=== PATIENT | female | born 1980 | race Caucasian/White ===

== ENCOUNTER → 2016-09-10 | Outpatient (CLI) | payer OTHER ==
[2016-09-10 11:38] LABS: BASO % 0.4 % (0.0-1.0); EOS # 0.1 K/mm3 (0.0-0.50); EOS % 1.6 % (0.0-3.0); LARGE UNSTAINED CELL # 0.1 K/mm3 (0.0-0.4); LARGE UNSTAINED CELL % 1.8 % (0.0-4.0); LYMPH # 1.7 K/mm3 (1.5-4.5); LYMPH % 22.3 % (24.0-44.0); MEAN CORPUSCULAR HEMOGLOBIN 30.2 pg (27.0-33.0); MEAN CORPUSCULAR HGB CONC 32.8 g/dl (32.0-36.5); MEAN CORPUSCULAR VOLUME 92.3 fl (80.0-96.0); MONO # 0.4 K/mm3 (0.0-0.8); MONO % 5.1 % (0.0-5.0); NEUTROPHILS # 5.3 K/mm3 (1.8-7.7); PLATELET COUNT, AUTOMATED 303 k/mm3 (150-450); RED CELL DISTRIBUTION WIDTH 12.4 % (11.5-14.5); WHITE BLOOD COUNT 7.6 K/mm3 (4.0-10.0)
[2016-09-10 11:56] LABS: ALBUMIN 4.1 GM/DL (3.2-5.2); ALBUMIN/GLOBULIN RATIO 1.11 (1.00-1.93); ALKALINE PHOSPHATASE 39 U/L (45-117); ALT/SGPT 27 U/L (12-78); ANION GAP 10 MEQ/L (8-16); AST/SGOT 17 U/L (15-37); BILIRUBIN,TOTAL 0.6 MG/DL (0.2-1.0); BLOOD UREA NITROGEN 14 MG/DL (7-18); CALCIUM LEVEL 8.9 MG/DL (8.5-10.1); CARBON DIOXIDE LEVEL 27 MEQ/L (21-32); CHLORIDE LEVEL 104 MEQ/L (98-107); CHOLESTEROL LEVEL 201 MG/DL (<200); CREATININE FOR GFR 0.88 MG/DL (0.55-1.02); GLOMERULAR FILTRATION RATE > 60.0 (>60); GLUCOSE, FASTING 77 MG/DL (70-105); POTASSIUM SERUM 4.4 MEQ/L (3.5-5.1); SODIUM LEVEL 141 MEQ/L (136-145); TOTAL PROTEIN 7.8 GM/DL (6.4-8.2); TRIGLYCERIDES LEVEL 71 MG/DL (<150)
== END | disposition home or self-care (01) ==
LOC: M LRY 08:27
PROVIDERS: ATTEND Family Medicine
DX: Z13.220 Encounter for screening for lipoid disorders (principal); Z86.73 Personal history of transient ischemic attack (TIA), and cerebral infarction without residual deficits

== ENCOUNTER → 2016-12-30 | Outpatient (REF) | payer OTHER | LOC: M LAB REF 17:12 | PROVIDERS: ATTEND Advanced Practice Midwife | DX: Z12.4 Encounter for screening for malignant neoplasm of cervix (principal) ==

== ENCOUNTER → 2016-12-31 | Outpatient (CLI) | payer OTHER ==
--- NOTE | 2017-01-01 06:15 | REP ---
Clinical: Abnormal uterine bleeding . Technique: Transabdominal pelvic ultrasound followed by transvaginal examination for better evaluation of the endometrium and adnexa with color Doppler evaluation of the ovaries. Findings: Bladder is unremarkable and measures 9.1 x 8.5 x 5.0 cm . Normal anteverted uterus measures 8.6 x 4.2 x 6.1 cm . The endometrial complex measures 11.3 mm thickness. IUD identified in satisfactory position. Few Nabothian cysts identified. Bilateral ovaries are normal in appearance and vascularity without evidence for torsion. Right ovary measures 4.5 x 2.9 x 3.1 cm with 2.5 cm likely physiologic cyst ; R I = 0.38 . Left ovary measures 4.0 x 2.2 x 3.2 cm ; R I = 0.74 . No pelvic fluid or adnexal mass lesion. Impression: 1. Anteverted uterus with IUD in satisfactory position. Few scattered Nabothian cysts. 2. 2.5 cm cyst in the right ovary likely physiologic. 1 cm echogenic focus in the right ovary nonspecific. Consider reevaluation in 4-6 weeks to evaluate for resolution. Signed by Cristhian Melvin MD 01/01/2017 06:06 A
== END ==
LOC: M LRY 08:20
PROVIDERS: ATTEND Advanced Practice Midwife
DX: N92.3 Ovulation bleeding (principal); N85.4 Malposition of uterus; N83.201 Unspecified ovarian cyst, right side; Z97.5 Presence of (intrauterine) contraceptive device

== ENCOUNTER → 2017-01-03 | Outpatient (CLI) | payer OTHER ==
--- NOTE | 2017-01-06 09:53 | REP ---
MRI LEFT HIP: TECHNIQUE: Coronal T1, STIR through the pelvis, T2 fat sat, left hip all three planes, axial oblique proton density fat sat left hip. There is mild subchondral marrow edema in the lateral left sacrum along the sacroiliac joint likely secondary to arthritic changes at that joint. No other abnormal marrow signal is seen. There is no occult fracture. There is no evidence of avascular necrosis. There is no evidence of a labral tear. No paralabral cyst is seen. There is no joint effusion. Other soft tissue structures demonstrate no abnormal signal. Within the visualized portions of the pelvis, a dominant follicle is noted in the right ovary 2.2 cm in diameter. There is trace free fluid in the pelvis likely physiologic in nature. A few tiny nabothian cysts are seen in the region of the cervix. IMPRESSION: Mild marrow edema in the lateral left sacrum along the sacroiliac joint, likely secondary to degenerative changes. No occult fracture or avascular necrosis. No evidence of a labral tear. Signed by Carlos Enrique Hahn MD 01/06/2017 05:41 P
== END ==
LOC: M RAD 17:37
PROVIDERS: ATTEND Physician Assistant
DX: M47.898 Other spondylosis, sacral and sacrococcygeal region (principal)